=== PATIENT | female | born 1975 ===

== ENCOUNTER → 2020-05-20 | Outpatient (CLI) | payer BC | LOC: ZCOL.LAB 17:57 | DX: Z20.828 Contact with and (suspected) exposure to other viral communicable diseases (principal) ==

== ENCOUNTER 2020-05-24 10:00 | Outpatient (RCR) | payer OTHER | END 2020-08-22 | disposition home or self-care (01) | LOC: WSOH → EDSTATUS 14:45 | DX: Z77.21 Contact with and (suspected) exposure to potentially hazardous body fluids (principal); W46.0XXA Contact with hypodermic needle, initial encounter; Z98.890 Other specified postprocedural states; Z90.89 Acquired absence of other organs; Y99.0 Civilian activity done for income or pay ==

== ENCOUNTER → 2020-08-06 | Outpatient (CLI) | payer OTHER | LOC: ZCOL.LAB 16:05 | DX: Z20.828 Contact with and (suspected) exposure to other viral communicable diseases (principal) ==